=== PATIENT | female | born 1935 | race Caucasian/White ===

== ENCOUNTER 2019-09-26 20:14 | Inpatient (IN) | payer MEDICARE ==
--- NOTE | 2019-09-26 20:30 | ED ---
SOB HPI - General Chief Complaint: Shortness of Breath Stated Complaint: SOB Time Seen by Provider: 09/26/19 20:15 Source: patient, EMS, RN notes reviewed, old records reviewed Mode of arrival: EMS Limitations: no limitations - History of Present Illness Initial Comments: This is a 84-year-old female DF she presents today for evaluation regarding a near syncopal event not feeling well low heart rate. Patient has recent travel history or sick contacts no change in medications a symptomatically currently has not been feeling well. MD Complaint: shortness of breath, chest pain -: hour(s) Severity: moderate Severity scale (1-10): 6 Consistency: constant Improves With: nothing Worsens With: nothing Context: anxiety, recent illness Associated Symptoms: palpitations, other (Weakness) Treatments Prior to Arrival: none - Related Data Home Medications Medication Instructions Recorded Confirmed Elif Back And Body 2 tab PO DAILY 09/26/19 09/26/19 Esomeprazole Magnesium [NexIUM 20 - 40 mg PO DAILY 09/26/19 09/26/19 24Hr] Allergies Allergy/AdvReac Type Severity Reaction Status Date / Time egg Allergy Anaphylaxis Verified 09/26/19 21:59 Penicillins Allergy Abdominal Verified 09/26/19 21:59 Pain/Spits up blood Review of Systems ROS Statement: Those systems with pertinent positive or pertinent negative responses have been documented in the HPI. ROS Other: All systems not noted in ROS Statement are negative. Past Medical History Past Medical History: Atrial Fibrillation, GERD/Reflux, Hypertension History of Any Multi-Drug Resistant Organisms: None Reported Past Surgical History: No Surgical Hx Reported Past Psychological History: No Psychological Hx Reported Smoking Status: Former smoker Past Alcohol Use History: None Reported Past Drug Use History: None Reported General Exam Limitations: no limitations General appearance: alert, in no apparent distress Head exam: Present: atraumatic, normocephalic, normal inspection Eye exam: Present: normal appearance, PERRL, EOMI. Absent: scleral icterus, conjunctival injection, periorbital swelling ENT exam: Present: normal exam, mucous membranes moist Neck exam: Present: normal inspection. Absent: tenderness, meningismus, lym phadenopathy Respiratory exam: Present: normal lung sounds bilaterally. Absent: respiratory distress, wheezes, rales, rhonchi, stridor Cardiovascular Exam: Present: regular rate, normal rhythm, normal heart sounds. Absent: systolic murmur, diastolic murmur, rubs, gallop, clicks GI/Abdominal exam: Present: soft, normal bowel sounds. Absent: distended, tenderness, guarding, rebound, rigid Extremities exam: Present: normal inspection, full ROM, normal capillary refill. Absent: tenderness, pedal edema, joint swelling, calf tenderness Back exam: Present: normal inspection Neurological exam: Present: alert, oriented X3, CN II-XII intact Psychiatric exam: Present: normal affect, normal mood Skin exam: Present: warm, dry, intact, normal color. Absent: rash Course Vital Signs 09/26/19 09/26/19 09/26/19 20:15 20:30 21:32 Temperature 97.6 F Pulse Rate 68 98 61 Respiratory 20 18 Rate Blood Pressure 187/102 155/91 194/131 O2 Sat by Pulse 96 99 Oximetry 09/26/19 09/26/19 09/26/19 21:37 21:40 21:50 Temperature Pulse Rate 72 70 63 Respiratory 20 18 20 Rate Blood Pressure 182/90 182/90 196/74 O2 Sat by Pulse 99 97 98 Oximetry 09/26/19 09/26/19 09/26/19 22:00 22:10 22:38 Temperature Pulse Rate 62 61 52 L Respiratory 19 22 20 Rate Blood Pressure 174/82 168/69 175/70 O2 Sat by Pulse 98 98 98 Oximetry - Reevaluation(s) Reevaluation #1: 09/26/19 23:08 medical record is reviewed Reevaluation #2: 09/26/19 23:08 patient has no CP, no SOB - Consultations Consultation #1: spoke w Dr Brock who is agreeable for an admission Medical Decision Making - Medical Decision Making 84 female presented with a near syncopal event likely related to bradycardia, cerebral insufficiency. Patient states she feels weak but is relatively symptomatic here in the ER heart is mildly improved blood pressures remained if anything elevated. Patient will be admitted for cardiology evaluation continued monitoring of vital signs - Lab Data Result diagrams: 09/26/19 21:00 09/26/19 21:00 Lab Results 09/26/19 09/26/19 09/26/19 Range/Units 21:00 21:00 21:00 WBC 5.6 (3.8-10.6) k/uL RBC 5.00 (3.80-5.40) m/uL Hgb 9.2 L (11.4-16.0) gm/dL Hct 35.0 (34.0-46.0) % MCV 70.0 L (80.0-100.0) fL MCH 18.3 L (25.0-35.0) pg MCHC 26.2 L (31.0-37.0) g/dL RDW 16.9 H (11.5-15.5) % Plt Count 206 (150-450) k/uL Neutrophils % 85 % Lymphocytes % 7 % Monocytes % 3 % Eosinophils % 3 % Basophils % 0 % Neutrophils # 4.8 (1.3-7.7) k/uL Lymphocytes # 0.4 L (1.0-4.8) k/uL Monocytes # 0.2 (0-1.0) k/uL Eosinophils # 0.2 (0-0.7) k/uL Basophils # 0.0 (0-0.2) k/uL Hypochromasia Marked Anisocytosis Slight Microcytosis Marked PT 9.8 (9.0-12.0) sec INR 0.9 (<1.2) APTT 20.0 L (22.0-30.0) sec Sodium 136 L (137-145) mmol/L Potassium 3.8 (3.5-5.1) mmol/L Chloride 104 (98-107) mmol/L Carbon Dioxide 23 (22-30) mmol/L Anion Gap 9 mmol/L BUN 12 (7-17) mg/dL Creatinine 0.56 (0.52-1.04) mg/dL Est GFR (CKD-EPI)AfAm >90 (>60 ml/min/1.73 sqM) Est GFR (CKD-EPI)NonAf 87 (>60 ml/min/1.73 sqM) Glucose 154 H (74-99) mg/dL Calcium 8.9 (8.4-10.2) mg/dL Phosphorus 3.9 (2.5-4.5) mg/dL Magnesium 1.9 (1.6-2.3) mg/dL Total Bilirubin 0.4 (0.2-1.3) mg/dL AST 70 H (14-36) U/L ALT 19 (4-34) U/L Alkaline Phosphatase 132 H (38-126) U/L CK-MB (CK-2) (0.0-2.4) ng/mL Troponin I (0.000-0.034) ng/mL NT-Pro-B Natriuret Pep pg/mL Total Protein 6.5 (6.3-8.2) g/dL Albumin 3.6 (3.5-5.0) g/dL TSH 6.820 H (0.465-4.680) mIU/L Free T4 (0.78-2.19) ng/dL Free T3 pg/mL (2.8-5.3) pg/ml Urine Color Urine Appearance (Clear) Urine pH (5.0-8.0) Ur Specific [place] (1.001-1.035) Urine Protein (Negative) Urine Glucose (UA) (Negative) Urine Ketones (Negative) Urine Blood (Negative) Urine Nitrite (Negative) Urine Bilirubin (Negative) Urine Urobilinogen (<2.0) mg/dL Ur Leukocyte Esterase (Negative) Urine RBC (0-5) /hpf Urine WBC (0-5) /hpf Urine Bacteria (None) /hpf Hyaline Casts (0-2) /lpf Urine Mucus (None) /hpf 09/26/19 09/26/19 09/26/19 Range/Units 21:00 21:00 21:00 WBC (3.8-10.6) k/uL RBC (3.80-5.40) m/uL Hgb (11.4-16.0) gm/dL Hct (34.0-46.0) % MCV (80.0-100.0) fL MCH (25.0-35.0) pg MCHC (31.0-37.0) g/dL RDW (11.5-15.5) % Plt Count (150-450) k/uL Neutrophils % % Lymphocytes % % Monocytes % % Eosinophils % % Basophils % % Neutrophils # (1.3-7.7) k/uL Lymphocytes # (1.0-4.8) k/uL Monocytes # (0-1.0) k/uL Eosinophils # (0-0.7) k/uL Basophils # (0-0.2) k/uL Hypochromasia Anisocytosis Microcytosis PT (9.0-12.0) sec INR (<1.2) APTT (22.0-30.0) sec Sodium (137-145) mmol/L Potassium (3.5-5.1) mmol/L Chloride (98-107) mmol/L Carbon Dioxide (22-30) mmol/L Anion Gap mmol/L BUN (7-17) mg/dL Creatinine (0.52-1.04) mg/dL Est GFR (CKD-EPI)AfAm (>60 ml/min/1.73 sqM) Est GFR (CKD-EPI)NonAf (>60 ml/min/1.73 sqM) Glucose (74-99) mg/dL Calcium (8.4-10.2) mg/dL Phosphorus (2.5-4.5) mg/dL Magnesium (1.6-2.3) mg/dL Total Bilirubin (0.2-1.3) mg/dL AST (14-36) U/L ALT (4-34) U/L Alkaline Phosphatase (38-126) U/L CK-MB (CK-2) 0.5 (0.0-2.4) ng/mL Troponin I 0.019 (0.000-0.034) ng/mL NT-Pro-B Natriuret Pep 568 pg/mL Total Protein (6.3-8.2) g/dL Albumin (3.5-5.0) g/dL TSH (0.465-4.680) mIU/L Free T4 1.30 (0.78-2.19) ng/dL Free T3 pg/mL 3.9 (2.8-5.3) pg/ml Urine Color Urine Appearance (Clear) Urine pH (5.0-8.0) Ur Specific [place] (1.001-1.035) Urine Protein (Negative) Urine Glucose (UA) (Negative) Urine Ketones (Negative) Urine Blood (Negative) Urine Nitrite (Negative) Urine Bilirubin (Negative) Urine Urobilinogen (<2.0) mg/dL Ur Leukocyte Esterase (Negative) Urine RBC (0-5) /hpf Urine WBC (0-5) /hpf Urine Bacteria (None) /hpf Hyaline Casts (0-2) /lpf Urine Mucus (None) /hpf 09/26/19 Range/Units 21:29 WBC (3.8-10.6) k/uL RBC (3.80-5.40) m/uL Hgb (11.4-16.0) gm/dL Hct (34.0-46.0) % MCV (80.0-100.0) fL MCH (25.0-35.0) pg MCHC (31.0-37.0) g/dL RDW (11.5-15.5) % Plt Count (150-450) k/uL Neutrophils % % Lymphocytes % % Monocytes % % Eosinophils % % Basophils % % Neutrophils # (1.3-7.7) k/uL Lymphocytes # (1.0-4.8) k/uL Monocytes # (0-1.0) k/uL Eosinophils # (0-0.7) k/uL Basophils # (0-0.2) k/uL Hypochromasia Anisocytosis Microcytosis PT (9.0-12.0) sec INR (<1.2) APTT (22.0-30.0) sec Sodium (137-145) mmol/L Potassium (3.5-5.1) mmol/L Chloride (98-107) mmol/L Carbon Dioxide (22-30) mmol/L Anion Gap mmol/L BUN (7-17) mg/dL Creatinine (0.52-1.04) mg/dL Est GFR (CKD-EPI)AfAm (>60 ml/min/1.73 sqM) Est GFR (CKD-EPI)NonAf (>60 ml/min/1.73 sqM) Glucose (74-99) mg/dL Calcium (8.4-10.2) mg/dL Phosphorus (2.5-4.5) mg/dL Magnesium (1.6-2.3) mg/dL Total Bilirubin (0.2-1.3) mg/dL AST (14-36) U/L ALT (4-34) U/L Alkaline Phosphatase (38-126) U/L CK-MB (CK-2) (0.0-2.4) ng/mL Troponin I (0.000-0.034) ng/mL NT-Pro-B Natriuret Pep pg/mL Total Protein (6.3-8.2) g/dL Albumin (3.5-5.0) g/dL TSH (0.465-4.680) mIU/L Free T4 (0.78-2.19) ng/dL Free T3 pg/mL (2.8-5.3) pg/ml Urine Color Light Yellow Urine Appearance Clear (Clear) Urine pH 7.5 (5.0-8.0) Ur Specific [place] 1.009 (1.001-1.035) Urine Protein 1+ H (Negative) Urine Glucose (UA) Trace H (Negative) Urine Ketones 1+ H (Negative) Urine Blood Negative (Negative) Urine Nitrite Negative (Negative) Urine Bilirubin Negative (Negative) Urine Urobilinogen <2.0 (<2.0) mg/dL Ur Leukocyte Esterase Negative (Negative) Urine RBC 1 (0-5) /hpf Urine WBC 3 (0-5) /hpf Urine Bacteria Rare H (None) /hpf Hyaline Casts 1 (0-2) /lpf Urine Mucus Rare H (None) /hpf - EKG Data -: EKG Interpreted by Me (EKG shows sinus bradycardia of 58, MI 1:30, QRS 1:30, QTc 506) Critical Care Time Critical Care Time: Yes Total Critical Care Time: 31 Disposition Clinical Impression: Weakness, Syncope, Bradycardia Disposition: ADMITTED IP TO THIS [facility] Condition: Fair Is patient prescribed a controlled substance at d/c from ED?: No
[2019-09-26] MEDS ORDERED: SODIUM CHLORIDE 0.9% 500 ML 500 ML IV STA (20:51)
[2019-09-26 21:12] LABS: Anisocytosis Slight; Basophils % (A) 0 %; Eosinophils # (A) 0.2 k/uL (0-0.7); Eosinophils % (A) 3 %; HGB 9.2 gm/dL (11.4-16.0); Hypochromasia Marked; Lymphocytes # (A) 0.4 k/uL (1.0-4.8); Lymphocytes % (A) 7 %; MCH 18.3 pg (25.0-35.0); MCHC 26.2 g/dL (31.0-37.0); Mean Platelet Volume 7.4; Microcytosis Marked; Monocytes # (A) 0.2 k/uL (0-1.0); Monocytes % (A) 3 %; Neutrophils # (A) 4.8 k/uL (1.3-7.7); Neutrophils % (A) 85 %; Platelet Count 206 k/uL (150-450); RDW 16.9 % (11.5-15.5); WBC 5.6 k/uL (3.8-10.6)
[2019-09-26] MEDS: ATROPINE SULFATE 0.1 MG/ML 10ML SYRINGE IV STA ×2 (21:13→21:32)
[2019-09-26 21:23] LABS: ALT 19 U/L (4-34); AST 70 U/L (14-36); African American GFR (CKD) >90 (>60 ml/min/1.73 sqM); Albumin 3.6 g/dL (3.5-5.0); Alkaline Phosphatase 132 U/L (38-126); Anion Gap 9 mmol/L; Blood Urea Nitrogen 12 mg/dL (7-17); Calcium 8.9 mg/dL (8.4-10.2); Carbon Dioxide 23 mmol/L (22-30); Chloride 104 mmol/L (98-107); Glucose 154 mg/dL (74-99); Magnesium 1.9 mg/dL (1.6-2.3); Non-African American GFR(CKD) 87 (>60 ml/min/1.73 sqM); Phosphorus 3.9 mg/dL (2.5-4.5); Potassium 3.8 mmol/L (3.5-5.1); Sodium 136 mmol/L (137-145); Total Bilirubin 0.4 mg/dL (0.2-1.3); Total Protein 6.5 g/dL (6.3-8.2)
[2019-09-26 21:28] LABS: INR 0.9 (<1.2); Prothrombin Time 9.8 sec (9.0-12.0)
[2019-09-26 21:35] LABS: Creatine Kinase MB 0.5 ng/mL (0.0-2.4); Troponin I 0.019 ng/mL (0.000-0.034)
[2019-09-26 21:37] LABS: Appearance,Urine Clear (Clear); Bacteria,Urine Rare /hpf; Bilirubin,Urine Negative (Negative); Blood,Urine Negative (Negative); Color,Urine Light Yellow; Glucose,Urine (UA) Trace (Negative); Hyaline Casts,Urine 1 /lpf (0-2); Ketones,Urine 1+ (Negative); Leukocyte Esterase,Urine Negative (Negative); Mucus,Urine Rare /hpf; Nitrite,Urine Negative (Negative); PH, Urine 7.5 (5.0-8.0); Protein,Urine 1+ (Negative); RBC,Urine 1 /hpf (0-5); Specific Gravity,Urine 1.009 (1.001-1.035); Urobilinogen,Urine <2.0 mg/dL (<2.0); WBC,Urine 3 /hpf (0-5)
[2019-09-26] MEDS ORDERED: NITROGLYCERIN SL TABS 0.4 MG TAB SUBLINGUAL PRN (22:33)
[2019-09-26] MEDS ORDERED: hydrALAZINE HCL 20 MG/ML 1 ML VIAL IVP STA (22:35)
[2019-09-26 22:39] VITALS: RESP 20
[2019-09-26 22:40] LABS: T4, Free (Free Thyroxine) 1.3 ng/dL (0.78-2.19)
[2019-09-26] MEDS ORDERED: SODIUM CHLORIDE 0.9% 1,000 ML IV SCH (22:45)
[2019-09-27] MEDS ORDERED: ATROPINE SULFATE 0.1 MG/ML 10ML SYRINGE IV PRN (00:37)
--- NOTE | 2019-09-27 01:17 | XR ---
EXAMINATION TYPE: XR chest 1V portable DATE OF EXAM: 09/27/2019 COMPARISON: NONE HISTORY: Short of breath TECHNIQUE: FINDINGS: Heart appears enlarged. There is no gross heart failure. There is coarsening of the lung ma rkings. There are chest leads. There is no definite pleural effusion. IMPRESSION: Pulmonary fibrosis. Cardiomegaly. No obvious heart failure.
--- NOTE | 2019-09-27 01:33 | P.HPIM ---
History of Present Illness H&P Date: 09/27/19 Chief Complaint: shortness of breath , bradycardia 84 year old female with P afib not on anticoagulation , history of hypertension not on medications patient comes in due to sudden onset SOB. she reports having URI symptoms over the past week. however today all of a sudden she had experienced SOB, she adds that she has noticed increased exertional dyspnea recently and swelling of her legs. denies any cardiac history , admits to remote history of irregular heart beat. denies any history of CAD. family were concerned when she looked very confused and tired and notified EMS. denies any associated chest pain. EMS noted that she was bradycardiac. patient denies any similar symptoms in the past, denies any fever, chills, coughing, abd pain , nausea or vomting. she denies any dizziness or light headedness. in the ED , she was bradycardiac down to the 30s. was given atropin . EKG showed no acute ST changes, admitted for cardio evaluation . paitnet blood pressure was elevated and was given a dose of hydralazin blood work showed elevated TSH, but normal ffree T4 microcytic anemia , she denies GI bleeding , patient takes low dose baby aspirin Review of Systems Pertinent positives as noted in HPI. All other systems were reviewed and are negative Past Medical History Past Medical History: Atrial Fibrillation, GERD/Reflux, Hypertension History of Any Multi-Drug Resistant Organisms: None Reported Past Surgical History: No Surgical Hx Reported Past Psychological History: No Psychological Hx Reported Smoking Status: Former smoker Past Alcohol Use History: None Reported Past Drug Use History: None Reported - Past Family History Mother Additional Family Medical History / Comment(s): OLD AGE Father Additional Family Medical History / Comment(s): BLOCKAGE CANT REMEMBER WHERE Medications and Allergies Home Medications Medication Instructions Recorded Confirmed Type Elif Back And Body 2 tab PO DAILY 09/26/19 09/26/19 History Esomeprazole Magnesium [NexIUM 20 - 40 mg PO DAILY 09/26/19 09/26/19 History 24Hr] Allergies Allergy/AdvReac Type Severity Reaction Status Date / Time egg Allergy Anaphylaxis Verified 09/26/19 21:59 Penicillins Allergy Abdominal Verified 09/26/19 21:59 Pain/Spits up blood Physical Exam Vitals: Vital Signs Temp Pulse Resp BP Pulse Ox 09/26/19 22:38 52 L 20 175/70 98 09/26/19 22:10 61 22 168/69 98 09/26/19 22:00 62 19 174/82 98 09/26/19 21:50 63 20 196/74 98 09/26/19 21:40 70 18 182/90 97 09/26/19 21:37 72 20 182/90 99 09/26/19 21:32 61 18 194/131 99 09/26/19 20:30 98 155/91 09/26/19 20:15 97.6 F 68 20 187/102 96 Intake and Output 09/26/19 09/26/19 09/27/19 14:59 22:59 06:59 Other: Weight 91.9 kg Constitutional: No acute distress, conversant, pleasant Eyes: Anicteric sclerae, moist conjunctiva, Pupils equal round reactive to light ENMT: NC/AT Oropharynx clear, no erythema, exudates Neck: Supple, FROM, no masses, or JVD No carotid bruits No thyromegaly Lungs: Good breath sounds bilaterally, fine inspiratory rales at bilateral lung bases Clear to percussion Normal respiratory effort, no accessory muscle use Cardiovascular: Heart regular in rate and rhythm, No murmurs, gallops, or rubs +1 Leg edema bilaterally Abdominal: Soft, erythema in intertriginous areas Nontender, no guarding, rebound or rigidity Abdomen moving with respiration Normoactive bowel sounds No hepatomegaly, No splenomegaly No palpable mass No abdominal wall hernia noted Skin: erythema in intertriginous areas under breasts and under the panus of belly . otherwise Normal temperature, tone, texture, turgor No induration No subcutaneous nodules No rash, lesions No ulcers Extremities: No digital cyanosis No clubbing Pedal pulses intact and symmetrical Radial pulses intact and symmetrical No calf tenderness Psychiatric: Alert and oriented to person, place Appropriate affect fair judgement Neuro Muscles Strength 4/5 in all 4 extremities Sensation to light touch grossly present throughout Cranial nerves II-XII grossly intact No focal sensory deficits Lymphatics: no palpable cervical or supraclavicular , or inguinal lymph nodes Results CBC & Chem 7: 09/26/19 21:00 09/26/19 21:00 Labs: Abnormal Lab Results - Last 24 Hours (Table) 09/26/19 09/26/19 09/26/19 Range/Units 21:00 21:00 21:00 Hgb 9.2 L (11.4-16.0) gm/dL MCV 70.0 L (80.0-100.0) fL MCH 18.3 L (25.0-35.0) pg MCHC 26.2 L (31.0-37.0) g/dL RDW 16.9 H (11.5-15.5) % Lymphocytes # 0.4 L (1.0-4.8) k/uL APTT 20.0 L (22.0-30.0) sec Sodium 136 L (137-145) mmol/L Glucose 154 H (74-99) mg/dL AST 70 H (14-36) U/L Alkaline Phosphatase 132 H (38-126) U/L TSH 6.820 H (0.465-4.680) mIU/L Urine Protein (Negative) Urine Glucose (UA) (Negative) Urine Ketones (Negative) Urine Bacteria (None) /hpf Urine Mucus (None) /hpf 09/26/19 Range/Units 21:29 Hgb (11.4-16.0) gm/dL MCV (80.0-100.0) fL MCH (25.0-35.0) pg MCHC (31.0-37.0) g/dL RDW (11.5-15.5) % Lymphocytes # (1.0-4.8) k/uL APTT (22.0-30.0) sec Sodium (137-145) mmol/L Glucose (74-99) mg/dL AST (14-36) U/L Alkaline Phosphatase (38-126) U/L TSH (0.465-4.680) mIU/L Urine Protein 1+ H (Negative) Urine Glucose (UA) Trace H (Negative) Urine Ketones 1+ H (Negative) Urine Bacteria Rare H (None) /hpf Urine Mucus Rare H (None) /hpf Assessment and Plan Assessment: 84 year old female with P. afib and hypertension comes in due to SOB, found to have bradycardia, denies cardiac history otherwise, admitted for close monitoring and cardio eval, admitted as inpatient with anticipated length of stay >2 midnights Plan: symptomatic bradycardia paroxysmal afib not on anticoagulation elevated blood pressure , history hypertension not on medications microcytic anemia , denies GI bleeding subclinical hypothyroid , close OP follow up plan close monitoring of vital signs , cardiac monitoring atropin PRN for bradycardia < 45 bpm trend troponins cardiology eval check CXR check Echo IVF hydration check iron studies check occult blood test PRN hydralazin for systolic blood pressure >180 follow up TSH and free T4 as outpatient fall precautions mechanical DVT PPX CODE STATUS: full code Discussed with: Patient, ER, RN Anticipated length of stay > than [address]: home A total of 60 minutes was spent on the care of this complex patient more than 50% of the time was spent in counseling and care coordination.
[2019-09-27 03:22] LABS: Cholesterol 205 mg/dL (<200); HDL Cholesterol 54 mg/dL (40-60); LDL Cholesterol,Calculated 138 mg/dL (0-99); Triglycerides 63 mg/dL (<150)
[2019-09-27] MEDS ORDERED: Potassium Replacement Protocol 1 EACH MISC MISCELLANE PRN (04:40)
[2019-09-27 04:56] VITALS: BP 171/85; PULSE 55; TEMP 98.7
[2019-09-27] MEDS ORDERED: POTASSIUM CHLORIDE ER 20 MEQ TAB.ER PO SCH (05:00)
[2019-09-27] MEDS ORDERED: EPINEPHrine 10 ML SYRINGE (0.1 MG/ML) ONE (05:19)
[2019-09-27] MEDS ORDERED: SODIUM CHLORIDE 0.9% 1,000 ML BAG ONE (05:19)
[2019-09-27] MEDS ORDERED: SODIUM BICARB 8.4% 50 ML SYR (1 MEQ/ML) ONE (05:19)
[2019-09-27] MEDS ORDERED: MAGNESIUM SULFATE SYG 4.06 MEQ/ML SYRINGE ONE (05:19)
[2019-09-27 05:23] LABS: Glucose,Whole Blood 134 mg/dL (75-99)
[2019-09-27 05:29] LABS: Anisocytosis Slight; Basophils % (A) 0 %; Eosinophils % (A) 0 %; HCT 35.1 % (34.0-46.0); HGB 9.2 gm/dL (11.4-16.0); Hypochromasia Marked; Lymphocytes # (A) 0.3 k/uL (1.0-4.8); Lymphocytes % (A) 5 %; MCHC 26.1 g/dL (31.0-37.0); MCV 68.8 fL (80.0-100.0); Mean Platelet Volume 7.2; Microcytosis Marked; Monocytes # (A) 0.3 k/uL (0-1.0); Monocytes % (A) 5 %; Neutrophils # (A) 5.5 k/uL (1.3-7.7); Neutrophils % (A) 87 %; Platelet Count 254 k/uL (150-450); RDW 17.2 % (11.5-15.5); WBC 6.3 k/uL (3.8-10.6)
[2019-09-27 05:42] LABS: African American GFR (CKD) >90 (>60 ml/min/1.73 sqM); Anion Gap 9 mmol/L; Blood Urea Nitrogen 8 mg/dL (7-17); Calcium 9.1 mg/dL (8.4-10.2); Carbon Dioxide 22 mmol/L (22-30); Chloride 103 mmol/L (98-107); Glucose 135 mg/dL (74-99); Magnesium 1.8 mg/dL (1.6-2.3); Non-African American GFR(CKD) >90 (>60 ml/min/1.73 sqM); Potassium 4.1 mmol/L (3.5-5.1); Sodium 134 mmol/L (137-145)
--- NOTE | 2019-09-27 06:07 | ED ---
Medical Decision Making - Medical Decision Making MINDY POPE was called on the floor, I responded to the MINDY POPE to assist the medical team On my arrival in the room CPR was in progress, respiratory therapy was at bedside providing BVM ventilations Resuscitation was continued per ACLS protocol, initial rhythm upon my arrival I been told was asystole, on first rhythm check patient was noted to be in torsades and was given magnesium. Patient was pale cold with dilated pupils I attempted to intubate the patient with direct visualization however patient was noted to have copious amounts of blood which appeared to be coming from the lungs. She was suctioned and subsequently intubated using a Glidescope Despite intubation and adequate oxygenation patient remained in asystole Patient was noted to have what appear to be a pulmonary hemorrhage with copious amounts of blood coming from the ET tube After multiple doses of epinephrine, magnesium and bicarb patient remained in asystole Decision was made to terminate resuscitation efforts. Patient was pulseless, apneic pupils were fixed and dilated. Patient was pronounced at 5:32 AM - Lab Data Result diagrams: 09/27/19 05:05 09/27/19 05:05 Lab Results 09/26/19 09/26/19 09/26/19 Range/Units 21:00 21:00 21:00 WBC 5.6 (3.8-10.6) k/uL RBC 5.00 (3.80-5.40) m/uL Hgb 9.2 L (11.4-16.0) gm/dL Hct 35.0 (34.0-46.0) % MCV 70.0 L (80.0-100.0) fL MCH 18.3 L (25.0-35.0) pg MCHC 26.2 L (31.0-37.0) g/dL RDW 16.9 H (11.5-15.5) % Plt Count 206 (150-450) k/uL Neutrophils % 85 % Lymphocytes % 7 % Monocytes % 3 % Eosinophils % 3 % Basophils % 0 % Neutrophils # 4.8 (1.3-7.7) k/uL Lymphocytes # 0.4 L (1.0-4.8) k/uL Monocytes # 0.2 (0-1.0) k/uL Eosinophils # 0.2 (0-0.7) k/uL Basophils # 0.0 (0-0.2) k/uL Hypochromasia Marked Anisocytosis Slight Microcytosis Marked PT 9.8 (9.0-12.0) sec INR 0.9 (<1.2) APTT 20.0 L (22.0-30.0) sec Sodium 136 L (137-145) mmol/L Potassium 3.8 (3.5-5.1) mmol/L Chloride 104 (98-107) mmol/L Carbon Dioxide 23 (22-30) mmol/L Anion Gap 9 mmol/L BUN 12 (7-17) mg/dL Creatinine 0.56 (0.52-1.04) mg/dL Est GFR (CKD-EPI)AfAm >90 (>60 ml/min/1.73 sqM) Est GFR (CKD-EPI)NonAf 87 (>60 ml/min/1.73 sqM) Glucose 154 H (74-99) mg/dL Calcium 8.9 (8.4-10.2) mg/dL Phosphorus 3.9 (2.5-4.5) mg/dL Magnesium 1.9 (1.6-2.3) mg/dL Total Bilirubin 0.4 (0.2-1.3) mg/dL AST 70 H (14-36) U/L ALT 19 (4-34) U/L Alkaline Phosphatase 132 H (38-126) U/L CK-MB (CK-2) (0.0-2.4) ng/mL Troponin I (0.000-0.034) ng/mL NT-Pro-B Natriuret Pep pg/mL Total Protein 6.5 (6.3-8.2) g/dL Albumin 3.6 (3.5-5.0) g/dL TSH 6.820 H (0.465-4.680) mIU/L Free T4 (0.78-2.19) ng/dL Free T3 pg/mL (2.8-5.3) pg/ml Urine Color Urine Appearance (Clear) Urine pH (5.0-8.0) Ur Specific [place] (1.001-1.035) Urine Protein (Negative) Urine Glucose (UA) (Negative) Urine Ketones (Negative) Urine Blood (Negative) Urine Nitrite (Negative) Urine Bilirubin (Negative) Urine Urobilinogen (<2.0) mg/dL Ur Leukocyte Esterase (Negative) Urine RBC (0-5) /hpf Urine WBC (0-5) /hpf Urine Bacteria (None) /hpf Hyaline Casts (0-2) /lpf Urine Mucus (None) /hpf 09/26/19 09/26/19 09/26/19 Range/Units 21:00 21:00 21:00 WBC (3.8-10.6) k/uL RBC (3.80-5.40) m/uL Hgb (11.4-16.0) gm/dL Hct (34.0-46.0) % MCV (80.0-100.0) fL MCH (25.0-35.0) pg MCHC (31.0-37.0) g/dL RDW (11.5-15.5) % Plt Count (150-450) k/uL Neutrophils % % Lymphocytes % % Monocytes % % Eosinophils % % Basophils % % Neutrophils # (1.3-7.7) k/uL Lymphocytes # (1.0-4.8) k/uL Monocytes # (0-1.0) k/uL Eosinophils # (0-0.7) k/uL Basophils # (0-0.2) k/uL Hypochromasia Anisocytosis Microcytosis PT (9.0-12.0) sec INR (<1.2) APTT (22.0-30.0) sec Sodium (137-145) mmol/L Potassium (3.5-5.1) mmol/L Chloride (98-107) mmol/L Carbon Dioxide (22-30) mmol/L Anion Gap mmol/L BUN (7-17) mg/dL Creatinine (0.52-1.04) mg/dL Est GFR (CKD-EPI)AfAm (>60 ml/min/1.73 sqM) Est GFR (CKD-EPI)NonAf (>60 ml/min/1.73 sqM) Glucose (74-99) mg/dL Calcium (8.4-10.2) mg/dL Phosphorus (2.5-4.5) mg/dL Magnesium (1.6-2.3) mg/dL Total Bilirubin (0.2-1.3) mg/dL AST (14-36) U/L ALT (4-34) U/L Alkaline Phosphatase (38-126) U/L CK-MB (CK-2) 0.5 (0.0-2.4) ng/mL Troponin I 0.019 (0.000-0.034) ng/mL NT-Pro-B Natriuret Pep 568 pg/mL Total Protein (6.3-8.2) g/dL Albumin (3.5-5.0) g/dL TSH (0.465-4.680) mIU/L Free T4 1.30 (0.78-2.19) ng/dL Free T3 pg/mL 3.9 (2.8-5.3) pg/ml Urine Color Urine Appearance (Clear) Urine pH (5.0-8.0) Ur Specific [place] (1.001-1.035) Urine Protein (Negative) Urine Glucose (UA) (Negative) Urine Ketones (Negative) Urine Blood (Negative) Urine Nitrite (Negative) Urine Bilirubin (Negative) Urine Urobilinogen (<2.0) mg/dL Ur Leukocyte Esterase (Negative) Urine RBC (0-5) /hpf Urine WBC (0-5) /hpf Urine Bacteria (None) /hpf Hyaline Casts (0-2) /lpf Urine Mucus (None) /hpf 09/26/19 Range/Units 21:29 WBC (3.8-10.6) k/uL RBC (3.80-5.40) m/uL Hgb (11.4-16.0) gm/dL Hct (34.0-46.0) % MCV (80.0-100.0) fL MCH (25.0-35.0) pg MCHC (31.0-37.0) g/dL RDW (11.5-15.5) % Plt Count (150-450) k/uL Neutrophils % % Lymphocytes % % Monocytes % % Eosinophils % % Basophils % % Neutrophils # (1.3-7.7) k/uL Lymphocytes # (1.0-4.8) k/uL Monocytes # (0-1.0) k/uL Eosinophils # (0-0.7) k/uL Basophils # (0-0.2) k/uL Hypochromasia Anisocytosis Microcytosis PT (9.0-12.0) sec INR (<1.2) APTT (22.0-30.0) sec Sodium (137-145) mmol/L Potassium (3.5-5.1) mmol/L Chloride (98-107) mmol/L Carbon Dioxide (22-30) mmol/L Anion Gap mmol/L BUN (7-17) mg/dL Creatinine (0.52-1.04) mg/dL Est GFR (CKD-EPI)AfAm (>60 ml/min/1.73 sqM) Est GFR (CKD-EPI)NonAf (>60 ml/min/1.73 sqM) Glucose (74-99) mg/dL Calcium (8.4-10.2) mg/dL Phosphorus (2.5-4.5) mg/dL Magnesium (1.6-2.3) mg/dL Total Bilirubin (0.2-1.3) mg/dL AST (14-36) U/L ALT (4-34) U/L Alkaline Phosphatase (38-126) U/L CK-MB (CK-2) (0.0-2.4) ng/mL Troponin I (0.000-0.034) ng/mL NT-Pro-B Natriuret Pep pg/mL Total Protein (6.3-8.2) g/dL Albumin (3.5-5.0) g/dL TSH (0.465-4.680) mIU/L Free T4 (0.78-2.19) ng/dL Free T3 pg/mL (2.8-5.3) pg/ml Urine Color Light Yellow Urine Appearance Clear (Clear) Urine pH 7.5 (5.0-8.0) Ur Specific [place] 1.009 (1.001-1.035) Urine Protein 1+ H (Negative) Urine Glucose (UA) Trace H (Negative) Urine Ketones 1+ H (Negative) Urine Blood Negative (Negative) Urine Nitrite Negative (Negative) Urine Bilirubin Negative (Negative) Urine Urobilinogen <2.0 (<2.0) mg/dL Ur Leukocyte Esterase Negative (Negative) Urine RBC 1 (0-5) /hpf Urine WBC 3 (0-5) /hpf Urine Bacteria Rare H (None) /hpf Hyaline Casts 1 (0-2) /lpf Urine Mucus Rare H (None) /hpf Critical Care Time Critical Care Time: Yes Total Critical Care Time: 15 Disposition Clinical Impression: Weakness, Syncope, Bradycardia Disposition: ADMITTED IP TO THIS HOSP Condition: Fair Procedures - Intubation Laryngoscope: Lazarus Size: 4 ET Tube Size: 7.5 ET Tube Uncuffed: No Tube Secured Location: lips Tube Placement Confirmation: visualized tube passing through cords, no breath sounds over epigastrium, confirmation by capnometry Intubation Complications: difficult intubation
[2019-09-27] MEDS ORDERED: PANTOPRAZOLE 40 MG TABLET PO SCH (07:30)
[2019-09-27] MEDS ORDERED: ASPIRIN 325 MG TAB PO SCH (09:00)
[2019-09-27 13:58] LABS: % Iron Saturation 3.45 (12.00-45.00); Ferritin 5.9 ng/mL (10.0-291.0); Iron 15 ug/dL (50-170); Total Iron Binding Capacity 435 ug/dL (228-460)
--- NOTE | 2019-09-30 06:30 | CDI ---
Documentation Clarification Form Date: 09/30/2019 06:08:54 AM From: Sue Kwon Phone: If you have a question about this query, please contact Vianca Armijo Agriculture Manager at [phone] between 8am and 5pm. Admit Date: 09/26/2019 10:35:00 PM Patient Name: Myah Dumont Visit Number: [id number] Discharge Date: 09/27/2019 10:39:00 AM ATTENTION: The Clinical Documentation Specialists (CDI) and [facility] Coding Staff appreciate your assistance in clarifying documentation. Please respond to the clarification below the line at the bottom and electronically sign. The CDI & [facility] Coding staff will review the response and follow-up if needed. Please note: Queries are made part of the Legal Health Record. If you have any questions, please contact the author of this message via ITS. Dr. Asif Brock The patient presented with the following SOB, bradycardia, A fib not on anticoagulant, near syncope, microcytic anemia, elevated BP. Documented diagnosis symptomatic bradycardia rule out underlying cardiac process. Patient's troponins .019, .236. Please clarify any clinical significance for patient's elevated troponins. History/Risk Factors: atrial fib Clinical Indicators: SOB, Code Blue Lab findings: Trop: .019, .236 Radiology findings: enlarged heart pulmonary fibrosis, no obvious HF Vital Signs: 97.6 F, 68 bpm to 98 bpm in 15 minutes, 20, 187/102 96% 4L Other Clinical Indicators: Difficult intubation with hemorrhage from lungs Treatment:Cardiac monitoring Atropin PRN for rates under 45, Trend troponins Consults: Pulmonary In your professional opinion, can you please clarify rule out underlying cardiac process and cause of elevated troponins: Other, please specify Unable to determine symptomatic bradycardia , rule out underlying cardiac process MTDD
--- NOTE | 2019-10-11 17:39 | CDI ---
Documentation Clarification Form Date: 10/11/2019 05:12:57 PM From: Sofia Bullock RN, CCDS Email: [email or web address] Admit Date: 09/26/2019 10:35:00 PM Patient Name: Myah Dumont Visit Number: [id number] Discharge Date: 09/27/2019 10:39:00 AM ATTENTION: The Clinical Documentation Specialists (CDI) and [facility] Coding Staff appreciate your assistance in clarifying documentation. Please respond to the clarification below the line at the bottom and electronically sign. The CDI & [facility] Coding staff will review the response and follow-up if needed. Please note: Queries are made part of the Legal Health Record. If you have any questions, please contact the author of this message via ITS. Dr. Asif Brock The patient had Cardiopulmonary Arrest due to asystole per the 09/25 H&P. History/Risk Factors: Per the 09/25 ED note, the patient had a near syncopal event, not feeling well and low heart rate. EMS noted she was bradycardic. 09/26 H&P indicates patient came in due to sudden onset SOB and reports having URI symptoms over the past week. Paroxysmal Atrial Fibrillation Tobacco use: former smoker Clinical Indicators: 09/26 CXR showed Pulmonary Fibrosis, enlarged heart and coarsening of the lung markings. 09/26 H&P indicates sudden SOB, increased exertional dyspnea and swelling of her legs, Cardiopulmonary Arrest on 09/26. Vital signs: 09/26 HR 55 then asystole, BP 171/85 Pulse oximetry: 96-98% on 4LNC at admission Lung assessment: copious amounts of blood which appeared to be coming from the lungs before intubation. Treatment: suctioning of the lungs and subsequently intubated and ventilated Oxygenation: 09/26 code blue note indicates "despite intubation and adequate oxygenation, the patient remained in asystole In your professional opinion, can you please clarify if these findings signify one of the following conditions? Acute Respiratory Failure Other Diagnosis, please specify Unable to determine Specificity: If known, further specify (if known): With hypercapnia? (pCO2 >50 and pH <7.35) With hypoxia? (pO2 <60 mm Hg or SpO2 <91% on room air) UNABLE TO DETERMINE MTDD
--- NOTE | 2019-10-30 15:40 | CDI ---
Documentation Clarification Form Date: 10/30/2019 03:06:00 PM From: Sofia Bullock RN, CCDS Email: [email or web address] Admit Date: 09/26/2019 10:35:00 PM Patient Name: Myah Dumont Visit Number: [id number] Discharge Date: 09/27/2019 10:39:00 AM ATTENTION: The Clinical Documentation Specialists (CDI) and [facility] Coding Staff appreciate your assistance in clarifying documentation. Please respond to the clarification below the line at the bottom and electronically sign. The CDI & [facility] Coding staff will review the response and follow-up if needed. Please note: Queries are made part of the Legal Health Record. If you have any questions, please contact the author of this message via ITS. Dr. Aisf Brock Documentation in the 09/26 ER note indicates: "I attempted to intubate the patient with direct visualization, however patient was noted to have copious amounts of blood which appeared to be coming from the lungs. She was suctioned and subsequently intubated using a glidoscope." Patient history/risk factors: Per the 09/25 ED note, the patient had a near syncopal event, not feeling well and low heart rate. EMS noted she was bradycardic. 09/26 H&P indicates patient came in due to sudden onset SOB and reports having URI symptoms over the past week. Paroxysmal Atrial Fibrillation Clinical Indicators: as above stating "copious amounts of blood which appeared to be coming from the lungs before intubation." 09/25 H&P indicates: "patient had cardiopulmonary arrest d/t asystole. ER team ran CPR on the patient, however, once intubated she was having large bloody secretions coming out of her ET tube." CPR record indicates suctioned 500ml of blood while trying to intubate. 3 Hgb 9.2 Vitals: 3/3 HR 55 then asystole. Treatment: CPR record indicates compressions, Epi bolus x3, intubated, 0.9 NS IV bolus In your professional opinion, can you please clarify if the above is clinically significant for: Hemorrhagic Shock Cause Cardiogenic Shock Cause Hypovolemic Shock Cause Other, please specify Unable to determine MTDD
== END 2019-09-27 10:39 | disposition expired | DRG 309 ==
LOC: EC 20:14 → 3SCARD 22:35
PROVIDERS: ADMIT Internal Medicine; ATTEND Internal Medicine
PROC: 5A12012 Performance of Cardiac Output, Single, Manual (ICD-10-PCS; principal; 2019-09-27)
PROC: 0BH18EZ Insertion of Endotracheal Airway into Trachea, Via Natural or Artificial Opening Endoscopic (ICD-10-PCS; 2019-09-27)
DX: R00.1 Bradycardia, unspecified (principal); R04.89 Hemorrhage from other sites in respiratory passages; D50.9 Iron deficiency anemia, unspecified; F41.9 Anxiety disorder, unspecified; H57.04 Mydriasis; I10 Essential (primary) hypertension; I46.9 Cardiac arrest, cause unspecified; I48.0 Paroxysmal atrial fibrillation; T88.4XXA Failed or difficult intubation, initial encounter; Z87.891 Personal history of nicotine dependence; E02 Subclinical iodine-deficiency hypothyroidism; Z88.0 Allergy status to penicillin; Z91.012 Allergy to eggs; K21.9 Gastro-esophageal reflux disease without esophagitis; I45.81 Long QT syndrome
CPT/HCPCS: 36415; 71045; 80048; 80053; 80061; 81001; 82553; 82728; 83540; 83550; 83735; 83880; 84100; 84439; 84443; 84481; 84484; 85025; 85610; 85730; 92950; 93005; 96361; 96374; 96375; 99291